=== PATIENT | female | born 1995 | race Caucasian/White ===

== ENCOUNTER 2018-07-24 21:36 | Emergency (ER) | payer MEDICAID ==
[~2018-07-24] VITALS: Ht 162.6 cm; Wt 127.2 kg
[2018-07-24 21:40] VITALS: BP 132/65
--- NOTE | 2018-07-24 21:40 | NUR ---
TO BED # 02 AMBULATORY
--- NOTE | 2018-07-24 21:55 | NUR ---
PT BIB C/O LOWER BACK PAIN X1 YEAR. PT STATES LOWER BACK PAIN X1 WEEK THAT RADIATES DOWN RIGHT LEG. PT DESCRIBES PAIN SHARP 7/10 CONSTANT PAIN; DENIES INJURY OR TRAUMA. PT STATES TAKING ACETAMINOPHIN AT HOME W/ SOME RELIEF. PT AMBULATES W/ STEADY GATE. --MILD TENDERNESS TO SITE, NO REDNESS OR SWELLING. PULSES EQUAL BL.
[2018-07-24] MEDS ORDERED: LIDOCAINE 5% 1 EA PATCH TP SCH (22:25)
[2018-07-24] MEDS ORDERED: KETOROLAC 30 MG/ML VIAL IM ONE (22:55)
--- NOTE | 2018-07-25 00:01 | NUR ---
Patient discharged with v/s stable. Written and verbal after care instructions given and explained. Patient acting appropriatly, patient states shot she recieved her really helped and pain is 0/10 at this time. Patient alert, oriented and verbalized understanding of instructions. Ambulatory with steady gait. All questions addressed prior to discharge. ID band removed. Patient advised to follow up with PMD. Rx of Methocarbamol, Lidoderm 5% Transdermal Patch, and Iburprofen given. Patient educated on indication of medication including possible reaction and side effects. Opportunity to ask questions provided and answered.
[2018-07-25 00:03] VITALS: BP 128/61
[2018-07-25] MEDS ORDERED: LIDOCAINE 5% 1 EA PATCH TP SCH (09:00)
== END 2018-07-25 00:03 | disposition home or self-care (01) ==
LOC: MED 21:36
DX: S39.012A Strain of muscle, fascia and tendon of lower back, initial encounter (principal); M54.40 Lumbago with sciatica, unspecified side; W18.39XA Other fall on same level, initial encounter; Y93.89 Activity, other specified; Y92.098 Other place in other non-institutional residence as the place of occurrence of the external cause; Y99.8 Other external cause status
CPT/HCPCS: 72110; 81002; 81025; 96372; 99283; J1885